=== PATIENT | male | born 1960 | race Caucasian/White ===

== ENCOUNTER 2017-01-03 07:40 | Day surgery (SDC) | payer OTHER ==
[~2017-01-03] VITALS: Ht 177.8 cm; Wt 113.0 kg
[~2017-01-03 07:40] MED LIST: LOSA1TAB70 PO; SERT20OR6 PO
[2017-01-03] MEDS ORDERED: fentaNYL-PF 50 mCg/mL 2 mL Inj ONE (07:41)
[2017-01-03] MEDS ORDERED: Propofol 10,000 mCg/mL 20 mL Inj ONE (07:41)
--- NOTE | 2017-01-03 07:51 | PCM.HPANE ---
Patient Data Surgeon Admitting Provider: Attending Provider:Wicho Mcdaniel MD Primary Care Physician:Other,Physician Other Provider:Duran Aguayo Anesthesia Reason for Visit Polyp Of Colon, Personal History Of Barretts Esoph Ht/WT & BMI Body Mass Index Allergies Coded Allergies: No Known Drug Allergies (Verified Allergy, Unknown, 01/03/17) Past Anesthesia History Anesthesia History: Denies:: Abnormal Airway, Anesthesia Reactions, Difficult Intubation, Fam Anesthesia Reaction, Fam Malignant Hypertherm, Malignant Hyperthermia Medications Reported Medications Sertraline HCl (Sertraline)20 Mg/1 Ml Oral.saow234 Mg PO DAILY #1 BOTTLE Ref 0 01/02/17 Losartan/HCTZ 100-25 mg 1 Each Tablet1 Tablet PO DAILY Ref 0 01/02/17 History History of ENT Problems?: No HEENT History: Denies:: Abnormal Airway Cataracts Difficult Intubation Dysphagia Glaucoma Hearing Problem Sinus Problem TMJ Denture Type: None Teeth Condition: Within Normal Limits Hx of Heart Problems?: No Cardiovascular History: Denies:: AICD Abdominal Aortic Aneurism Atrial Fibrillation Cardiac Surgery Chest Pain Congestive Heart Failure Coronary Artery Disease Edema Heart Murmur Hypertension Irregular Heartbeat Pacemaker Peripheral Vascular Rheumatic Fever Thrombophlebitis Valvular Heart Disease Hx of Respiratory Problem?: No Respiratory History: Denies:: Asthma COPD Chest Surgery Cough Dyspnea Emphysema Hemoptysis Oxygen Administration Pneumonia Pulmonary Embolism Tuberculosis Use of C-PAP Machine Use of Inhalers / NEBS Hx Neurologic Problems?: No Neurological History: Denies:: Alzheimer's Disease CVA Dementia Dizziness Headaches Multiple Sclerosis Parkinson's Disease Peripheral Neuropathy Seizures TIA Hx of GI Problems?: No Gastrointestinal History: Denies:: Cirrhosis Diverticulitis Gall Bladder Disease Gastroesphageal Reflux Gastrointestinal Bleeding Heartburn Hepatitis Hiatal Hernia Liver Disease Rectal Bleeding Hx of Problems?: No Genitourinary History: Denies:: HX of Hemodialysis Kidney Stones Urinary Tract Infection Hx Musculoskeletal Problems?: No Hx Surgeries?: Yes Stop/Bang Risk Assessment Category Category 1A: Patient has history of documented sleep apnea, and HAS NOT received any narcotic, sedative or anesthesia administration during this stay. Category 1B: Patient has history of documented sleep apnea, and HAS received any narcotic , sedative or anesthesia administration during this stay Category 2: Patient has SUSPECTED Obstructive Sleep Apnea, and HAS received any narcotic , sedative or anesthesia administration during this stay. Category 3: Patient has SUSPECTED Obstructive Sleep Apnea and HAS NOT received narcotic, sedative or anesthesia administration during this stay. Category 4: Outpatient in Procedural Areas with known sleep apnea or who screen positive for High Risk via the STOP/BANG questionnaire. Exam Exam General Appearance: Alert, Oriented X3, Cooperative, No Acute Distress HEENT/AIRWAY: MP 2, Neck Movement (FROM), Mouth Opening (WNL) Lungs: Clear to Auscultation Heart: Exam Unremarkable Plan Impression Patient chart reviewed, patient interviewed and anesthestic plan with risks, benefits, and alternatives discussed, and informed consent obtained. ASA Physical Status: ASA2 Mod Systemic Disease Anesthetic Plan: GA Bene/Risks/Altern/Consents: Yes HP Complete Prior to Induction: Yes Iglesia Newell MD January 03, 2017 07:51
[2017-01-03 08:06] VITALS: BP 150/93; PULSE 89; RESP 14; O2SAT 96
[2017-01-03] MEDS ORDERED: Lactated Ringer's 1,000 ML IV SCH (08:40)
[2017-01-03] MEDS ORDERED: Ondansetron 2 mg/mL 2 mL Inj IVPUSH PRN (08:40)
[2017-01-03] MEDS ORDERED: MetoCLOpramide 5 mg/mL 2 mL Inj IVPUSH PRN (08:40)
[2017-01-03] MEDS: Lactated Ringer's 1,000 ML IV ONE ×2 (08:59→09:04)
[2017-01-03 09:35] VITALS: BP 100/73; PULSE 80; O2SAT 94
--- NOTE | 2017-01-03 09:50 | PCM.ANEP1 ---
Post Anesthesia Phase 1 PACU Phase 1 Assessment Vital Signs Vital Signs Date Time Temp Pulse Resp B/P Pulse Ox O2 Delivery O2 Flow Rate FiO2 01/03/17 09:35 80 100/73 94 Room Air 01/03/17 08:06 36 89 14 150/93 96 Room Air Anesthetic Administered: GA Level of Alertness: Awake, talking AWAN's with Equal Strength: Yes Pain: No Nausea or Vomiting: No Lungs: Normal Air Movement Complications: No Follow up Care: No Iglesia Newell MD January 03, 2017 09:50
[2017-01-03 10:17] VITALS: BP 105/69; PULSE 60; RESP 13; O2SAT 95
--- NOTE | 2017-01-03 10:17 | ENDO ---
[address] [address] ENDOSCOPY PROCEDURE PATIENT: BASSAM MEADOWS : 1960 MR#: [id number] ADMIT: 01/03/2017 JOB ID: [id number] PRIMARY PROVIDER: Douglas Zuñiga MD PROCEDURE: Esophagogastroduodenoscopy with biopsies and a colonoscopy with hot snare polypectomy. INDICATIONS: A 56-year-old male with a history of reflux and Marcelino's. He also has a personal history of colon polyps. He has had prior halo ablation and Blaise fundoplication. EQUIPMENT: GIF-H180-J, and a PCF-H180-AL. SEDATION: Monitored anesthesia as provided by Dr. Nickolas Newell. COMPLICATIONS: None identified. BOWEL PREPARATION: Fair, adequate exam. PROCEDURE INFORMATION: After the risks and benefits were explained, written and verbal informed consent was obtained. The patient was brought into the endoscopy suite and placed into the left lateral decubitus position. Sedation was achieved as above. The scope was introduced into the mouth through the bite block, and advanced to the second portion of the duodenum. The scope was slowly withdrawn to carefully examine the mucosa for any defects or lesions. Retroflexed views were accomplished in the stomach. The stomach was decompressed, the scope removed from the patient who tolerated the procedure well. The patient was then turned around. A digital rectal examination accomplished. No significant pathology apart from some mild internal hemorrhoids noted. The scope was introduced into the rectum and advanced under direct visualization to the level of the cecum, as identified by the appendiceal orifice and ileocecal valve. The scope was slowly withdrawn to carefully examine the mucosa for any defects or lesions. Retroflexed views were avoided in the rectum. Multiple direct views were made through the dentate line for exclusion of pathology. The colon was decompressed, the scope removed from the patient who tolerated the procedure well. FINDINGS: 1. Duodenum: There were some erosive features in the proximal second portion of the duodenum. One of these was sampled for histopathology. No mass lesions. No other pathology noted from the bulb through D2. 2. Stomach: The patient had a mild diffuse nonspecific gastropathy. Biopsy was acquired for exclusion of Helicobacter or other pathology. No ulcers or mass lesions. Retroflexed views disclosed prior fundoplication anatomy. 3. Esophagus: The squamocolumnar junction generally seemed to correlate with the top of the gastric folds. The GEJ was at about 42 cm from the incisors. In the 7-9 o'clock location, there were a couple of tongues of extension up into the distal esophagus. I suspect this is just the Z-line, but in the context of a prior history of Marcelino's requiring a halo, we took a biopsy from this location. In the mid esophagus, about 34 cm from the incisors, there was a small island of possible Marcelino's versus a small inlet patch. This was biopsied for exclusion of specialized intestinal metaplasia. 4. Colon: In the transverse colon, there was an approximately 1 cm sessile polyp removed with hot snare. There were a few scattered classic diminutive, benign-appearing hyperplastic polyps in the rectosigmoid region that we did not remove. Otherwise, no significant pathology appreciated throughout the colon. ENDOSCOPIC DIAGNOSES: 1. 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 2. 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 3. Prior fundoplication anatomy. 4. Gastroduodenopathy. 5. Colon polyp. 6. Hemorrhoids. RECOMMENDATIONS: 1. Await histopathology. 2. Repeat EGD timing will be contingent on histo findings. If there is any evidence of Marcelino's at all, then I would be inclined to pursue this again in one year. If there is no evidence of any specialized intestinal metaplasia, then I think repeat in three years. 3. Repeat colonoscopy in three years. CC: Douglas Zuñiga MD
--- NOTE | 2017-01-06 14:26 | PATH ---
SURGICAL PATHOLOGY Attending Physician:Maxim Montenegro CASE STATUS: Signed Out PATIENT NAME: BASSAM MEADOWS PID: [id number] : 1960 DATE COLLECTED:01/03/2017 18:05 SPECIMEN: 1: Esophagus, Biopsy 2: Duodenum, Biopsy 3: Gastric, Biopsy 4: Esophagus, Biopsy 5: Colon, Biopsy CLINICAL HISTORY: 1. DISTAL ESOPHAGUS BIOPSY 2. DUODENUM BIOPSY 3. GASTRIC BIOPSY 4. MID-ESOPHAGUS BIOPSY @34 CM 5. TRANSVERSE COLON POLYP FINAL DIAGNOSIS: 1. Distal Esophagus Biopsy: Squamocolumnar junctional mucosa with no diagnostic abnormality. Negative for intestinal metaplasia, dysplasia, and malignancy. 2. Duodenal Biopsy: Active duodenitis, nonspecific. No pathogenic organisms or granulomas identified. Negative for dysplasia and malignancy. 3. Gastric Biopsy: Portions of gastric body-type mucosa with focal, possible mucosal erosion. Negative for Helicobacter organisms by H&E stain. Negative for intestinal metaplasia, dysplasia, and malignancy. 4. Mid Esophagus at 34 cm, Biopsy: Squamocolumnar junctional mucosa with specialized intestinal metaplasia, consistent with Marcelino's esophagus. Negative for dysplasia and malignancy. 5. Transverse Colon Polyp, Biopsy: Portions of sessile serrated adenoma. ICD10: K63.5 GROSS DESCRIPTION: The specimen is received in five formalin filled containers labeled with the patient's name. 1). The specimen is sublabeled "distal esophagus" and consists of a 0.2 x 0.2 x 0.2 CM portion of tissue which is entirely submitted in cassette 1A. 2). The specimen is sublabeled "duodenum" and consists of a 0.2 x 0.2 x 0.2 CM portion of tissue which is entirely submitted in cassette 2A. 3). The specimen is sublabeled "gastric" and consists of a 0.4 x 0.3 x 0.2 CM portion of tissue which is entirely submitted in cassette 3A. 4). The specimen is sublabeled "midesophagus at 34 CM" and consists of a 0.2 x 0.2 x 0.2 CM portion of tissue which is entirely submitted in cassette 4A. 5). The specimen is sublabeled "transverse colon polyp" and consists of 2 portions of tissue which aggregate to 0.7 x 0.7 x 0.6 CM. The smallest piece is entirely submitted in cassette 5A. The largest piece is bisected and entirely submitted in the same cassette. 01/03/2017 [facility] ICD-9 CODES: CPT CODES: 1: 42159 2: 18788 3: 31392 4: 24627 5: 12877 Electronically Signed Out Angeles Thomas MD [facility], [place] [address] Technical component performed at [facility], [facility] [address], [place], [address]
== END 2017-01-03 23:59 | disposition home or self-care (01) ==
LOC: END 07:40
PROVIDERS: ATTEND Internal Medicine Gastroenterology
DX: Z12.11 Encounter for screening for malignant neoplasm of colon (principal); D12.3 Benign neoplasm of transverse colon; K64.8 Other hemorrhoids; Z87.19 Personal history of other diseases of the digestive system; K22.70 Barrett's esophagus without dysplasia; K29.80 Duodenitis without bleeding; K21.9 Gastro-esophageal reflux disease without esophagitis
CPT/HCPCS: 43239; 45380; J2250; J3010; J7120